=== PATIENT | female | born 2000 | race Two or more races ===

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

== ENCOUNTER → 2024-03-25 | Outpatient (CLI) | payer BC, SELFPAY ==
[2024-03-25 18:26] LABS: HIV - WCH Non-Reactive (Nonreactive); Hepatitis C Antibody Non-Reactive (Nonreactive); Syphilis Antibodies Non-reactive
[2024-03-27 09:08] LABS: HSV 1 IgG < 0.91 index (0.00-0.90); HSV 2 IgG < 0.91 index (0.00-0.90)
[2024-03-29 07:07] LABS: Chlamydia By Nucleic Acid AMP Positive (Negative); Gonococcus By Nucleic Acid AMP Negative (Negative)
[2024-03-30 20:33] LABS: HPV Reflexed? NOT INDICATED
== END | disposition home or self-care (01) ==
PROVIDERS: Referring Provider Nurse Practitioner Women's Health; Visit Provider Nurse Practitioner Women's Health
DX: Z20.2 Contact with and (suspected) exposure to infections with a predominantly sexual mode of transmission (principal); N94.9 Unspecified condition associated with female genital organs and menstrual cycle; Z12.4 Encounter for screening for malignant neoplasm of cervix
CPT/HCPCS: 36415; 86695; 86696; 86703; 86780; 86803; 87070; 87205; 87491; 87591; 88175; G0145

== ENCOUNTER → 2024-08-25 | Outpatient (CLI) | payer OTHER, SELFPAY | END | disposition home or self-care (01) | LOC: LABSPEC 15:17 | PROVIDERS: Referring Provider Nurse Practitioner Family; Visit Provider Nurse Practitioner Family | DX: N89.8 Other specified noninflammatory disorders of vagina (principal) | CPT/HCPCS: 87070; 87077; 87205 ==

== ENCOUNTER → 2024-09-13 | Outpatient (CLI) | payer OTHER, SELFPAY ==
--- NOTE | 2024-09-13 12:05 | US_ITS ---
STUDY: ULTRASOUND BREAST - RIGHT REASON FOR EXAM: Female, 23 years old. Right breast lump. TECHNIQUE: Axial and longitudinal images of the RIGHT breast were performed with a high resolution ultrasound transducer. # OF IMAGES: 55 COMPARISON: None. FINDINGS: RIGHT Breast: The right breast was examined with ultrasound. There is a 3 mm x 5 mm x 2 mm benign appearing lymph node at the 7:00 position the breast at 7 cm from nipple. There is evidence of 8mm by 8 mm x 3 mm cyst in the retroareolar region as well as a 2 mm x 4 mm x 2 mm cyst in the retroareolar region. IMPRESSION: Small cysts are seen in the right breast as described. Benign-appearing lymph node. ASSESSMENT CATEGORY: BIRADS Category 2: Benign. A letter regarding these results will be sent to the patient by the facility within 30 days. Electronically Signed: Geoffrey Barone MD at 9:35 EST , STUDY: ULTRASOUND BREAST - LEFT REASON FOR EXAM: Female, 23 years old. Palpable lump left breast. TECHNIQUE: Axial and longitudinal images of the LEFT breast were performed with a high resolution ultrasound transducer. # OF IMAGES: 55 COMPARISON: None. FINDINGS: LEFT Breast: The left breast was examined with ultrasound. The palpable lump corresponds to 1.6 cm x 2.7 cm x 1.5 cm lobulated hypoechoic solid nodule at the 4:00 position breast at 7 cm from the nipple. This most likely represent a fibroadenoma. Increased vascularity is seen. Tissue sampling is recommended. There is also evidence of a 7 mm x 7 mm x 6 mm hypoechoic slightly lobulated nodule at the 3:00 position the breast at 4 cm from the nipple. Tissue diagnosis is recommended. US/Breast Limited Unilateral IMPRESSION: 2 solid hypoechoic nodular density seen at the 4:00 and 3:00 position of the left breast as described. Biopsy recommended. ASSESSMENT CATEGORY: BIRADS Category 4: Suspicious - Biopsy Should Be Considered. A letter regarding these results will be sent to the patient by the facility within 30 days. Electronically Signed: Geoffrey Barone MD at 9:37 EST ,
--- NOTE | 2024-09-13 12:05 | US_ITS ---
STUDY: ULTRASOUND OF THE FEMALE PELVIS - COMPLETE REASON FOR EXAM: Female, 23 years old. pelvic pain LMP: TECHNIQUE: Transabdominal and transvaginal TECHNICAL QUALITY: Adequate. COMPARISON: None. FINDINGS: The uterus is anteverted and is in a midline position. The uterus measures 7.2 x 3.4 x 2.6 cm. Normal uterine cervix. The endometrium measures 3.5 mm in thickness, and is trilaminar. There is no demonstrated endometrial mass. There is no demonstrated myometrial mass. I.U.D. - The patient does not have an I.U.D. The right ovary is visualized. The right ovary measures 4.8 x 2.4 x 2.4 cm. There is no right ovarian cyst or ovarian mass. There is no visualized right adnexal mass or complex lesion. There is normal arterial and normal venous vascularity. The left ovary is visualized. The left ovary measures 4.2 x 1.3 x 2.2 cm. There is no left ovarian cyst or ovarian mass. There is no visualized left adnexal mass or complex lesion. There is normal arterial and normal venous vascularity. There is no fluid in the cul-de-sac. The pre void volume of the bladder was 305.64 ml. The post void volume of the bladder was ml. US/Pelvic w/ Transvaginal IMPRESSION: Normal female pelvis. Electronically Signed: Twin Winn MD at 16:09 EST ,
== END | disposition home or self-care (01) ==
PROVIDERS: Referring Provider Nurse Practitioner Family; Visit Provider Nurse Practitioner Family
DX: R10.2 Pelvic and perineal pain (principal); N63.10 Unspecified lump in the right breast, unspecified quadrant
CPT/HCPCS: 76642; 76830; 76856

== ENCOUNTER → 2024-09-15 | Outpatient (CLI) | payer OTHER, SELFPAY | END | disposition home or self-care (01) | LOC: LABSPEC 10:55 | PROVIDERS: Referring Provider Nurse Practitioner Family; Visit Provider Nurse Practitioner Family | DX: N89.8 Other specified noninflammatory disorders of vagina (principal) | CPT/HCPCS: 87070; 87205 ==

== ENCOUNTER → 2024-09-23 | Outpatient (CLI) | payer OTHER, SELFPAY ==
--- NOTE | 2024-09-23 08:00 | BRBX_PTH ---
PATIENT: JORDAN TAFOYA LOC: [facility] U#:[id number] AGE/SX: 23/F ROOM: RE09/23/[address]: Dr. Elroy Elizabeth MD : 2000 BED: DIS: 09/23/2024 SPEC #: [id number] RECD: 09/23/24 11:07 STATUS: CARSON REBette #: [id number] JOHN: 09/23/24 08:[address]: Elroy Elizabeth DEPT: SURGICAL PATHOLOGY RECD BY: Alexandrea Guido ENTERED: 09/23/24 13:04 SP TYPE: BREAST BX ANGELIKA DR: Dr. Kristen Reece MD Tissues: A - Left breast, NOS B - Left breast, NOS Procedures: Surgery Specimen Level IV HEADER OPERATION: Core needle biopsy of left breast PRE-OP DIAGNOSIS: Left breast biopsy TISSUE SUBMITTED: A. Left breast, 3 o'clock, B. Left breast, 4 o'clock ISCHEMIC: 1 minute FIXATION: 12 hours MICROSCOPIC DIAGNOSIS A. 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 (See Comment) B. Left Breast, 4 o'clock, Core Needle Biopsy: 1. Fibroadenoma 2. 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 (See Comment) CHELSIE 09/24/[address] Monroy has been consulted on this case and she agrees with the diagnosis. MICROSCOPIC DESCRIPTION Slides are reviewed. GROSS DESCRIPTION A. Received in formalin is one container labeled with the patient's name and designated left breast, 3 o'clock. The specimen consists of multiple irregular and elongated fragments of loving-white tissue measuring in aggregate 0.5 x 0.1 x 0.1 cm. The specimen is totally submitted in one cassette. B. Received in formalin is one container labeled with the patient's name and designated left breast, 4 o'clock. The specimen consists of two irregular and elongated fragments of loving-white tissue measuring in aggregate 1.5 x 0.3 x 0.1 cm. The specimen is totally submitted in one cassette. /VILMA:talia 09/23/24 TC:1 CPT: [id number]
== END | disposition home or self-care (01) ==
LOC: LABSPEC 11:14
PROVIDERS: PCP Internal Medicine; Referring Provider Surgery; Visit Provider Surgery
DX: D24.2 Benign neoplasm of left breast (principal)
CPT/HCPCS: 88305

== ENCOUNTER → 2024-12-01 | Outpatient (CLI) | payer OTHER, SELFPAY ==
[2024-12-04 12:08] LABS: Chlamydia By Nucleic Acid AMP Negative (Negative); Gonococcus By Nucleic Acid AMP Negative (Negative)
== END | disposition home or self-care (01) ==
LOC: LABSPEC 15:58
PROVIDERS: PCP Internal Medicine; Referring Provider Nurse Practitioner Family; Visit Provider Nurse Practitioner Family
DX: N89.8 Other specified noninflammatory disorders of vagina (principal); Z20.2 Contact with and (suspected) exposure to infections with a predominantly sexual mode of transmission
CPT/HCPCS: 87070; 87205; 87491; 87591

== ENCOUNTER → 2025-03-28 | Outpatient (CLI) | payer OTHER, SELFPAY ==
[2025-03-31 06:08] LABS: Chlamydia By Nucleic Acid AMP Negative (Negative); Gonococcus By Nucleic Acid AMP Negative (Negative)
== END | disposition home or self-care (01) ==
LOC: LABSPEC 16:44
PROVIDERS: PCP Internal Medicine; Referring Provider Nurse Practitioner Women's Health; Visit Provider Nurse Practitioner Women's Health
DX: N89.8 Other specified noninflammatory disorders of vagina (principal); Z11.3 Encounter for screening for infections with a predominantly sexual mode of transmission
CPT/HCPCS: 87070; 87077; 87205; 87491; 87591

== ENCOUNTER → 2025-04-05 | Outpatient (CLI) | payer OTHER, SELFPAY ==
--- NOTE | 2025-04-05 12:04 | US_ITS ---
PROCEDURE: BREAST LIMITED UNILATERAL 04/05/2025 REASON FOR EXAM: 24-year-old female presents for follow-up examination of the left breast masses. COMPARISON: Ultrasound 10/02/2022 and 09/13/2024. TECHNIQUE: BREAST LIMITED UNILATERAL FINDINGS: Ultrasound performed of the lower outer breast left breast demonstrates a circumscribed hypoechoic mass with an associated biopsy marker clip at 4 o'clock 6 cm from the nipple measuring 2.9 x 1.7 x 1.6 cm. There is another circumscribed hypoechoic mass with a probable biopsy marker clip at 3 o'clock 4 cm from the nipple measuring 0.9 x 0.5 x 0.5 cm. 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 Overall, these masses have not significantly changed when compared to multiple priors dating back to 2022. US/Breast Limited Unilateral IMPRESSION: Benign left breast masses at 4 o'clock and 3 o'clock, biopsy-proven fibroadenom as. BI-RADS 2: BENIGN RECOMMEND ANNUAL MAMMOGRAPHIC SCREENING. RECOMMENDATION: OTHER. No additional imaging needed at this time. Reading Location: [id number]
== END | disposition home or self-care (01) ==
PROVIDERS: PCP Internal Medicine; Referring Provider Surgery; Visit Provider Surgery
DX: R92.8 Other abnormal and inconclusive findings on diagnostic imaging of breast (principal)
CPT/HCPCS: 76642